=== PATIENT | female | born 1975 | race Caucasian/White ===

== ENCOUNTER → 2016-08-18 | Outpatient (CLI) | payer BC ==
--- NOTE | 2016-08-18 15:36 | REP ---
Clinical: Myomatous uterus. Comparison: 11/26/2014. Technique: Transabdominal pelvic ultrasound with color Doppler evaluation of the bilateral ovaries. Findings: An enlarged, heterogeneous, myomatous uterus measures 13.4 x 9.6 x 13.3 cm and includes at least four large fibroids measuring up to 5.1 x 5.1 x 4.0 cm along the right fundal aspect of the uterus. 4.5 x 3.8 x 4.2 cm anterior subserosal fibroid is appreciated along with 4.9 x 4.9 x 5.9 cm posterior subserosal fibroid, and 4.7 x 4.4 x 4.6 cm fundal fibroid. The endometrial complex is not evaluated due to poor definition by distortion from surrounding fibroids however no endocervical fluid is appreciated. Right ovary measures 2.5 x 2.2 x 3.0 cm; RI equal 0.46 and appears normal. Left ovary measures 3.1 x 2.2 x 2.4 cm; RI equals 0.43 and appears normal. No pelvic fluid or adnexal mass lesions. Impression: 1. Enlarged, heterogeneous myomatous uterus as detailed above. 2. Normal bilateral ovaries with appropriate vascularity and no torsion. 3. No pelvic fluid or adnexal mass lesion. Signed by Kavon Tinsley MD 08/18/2016 03:27 P
== END ==
LOC: M RAD 14:50
PROVIDERS: ATTEND Nurse Practitioner Family
DX: D25.9 Leiomyoma of uterus, unspecified (principal); N92.1 Excessive and frequent menstruation with irregular cycle

== ENCOUNTER → 2016-11-20 | Outpatient (REF) | payer BC | LOC: M LAB REF 15:07 | PROVIDERS: ATTEND Obstetrics & Gynecology | DX: N93.9 Abnormal uterine and vaginal bleeding, unspecified (principal) ==

== ENCOUNTER 2017-06-18 11:20 | Emergency (ER) | payer BC ==
[2017-06-18 11:49] LABS: KETONE, URINE AUTO RFX TRACE mg/dL (NEGATIVE); LEUKOCYTE ESTERASE UR AUTO RFX NEGATIVE (NEGATIVE); MUCUS, URINE RFX SMALL (NEGATIVE); NITRITE, URINE AUTO RFX NEGATIVE (NEGATIVE); RBC, URINE AUTO RFX 2 /HPF (0-3); SPECIFIC GRAVITY UR AUTO RFX 1.023 (1.002-1.035); SQUAM EPITHELIAL CELL UR AURFX 1 /HPF (0-6); WBC, URINE AUTO RFX 1 /HPF (0-3)
[2017-06-18] MEDS ORDERED: MORPHINE 2 MG/ML 1ML SYRINGE (J2270) IV (13:45)
[2017-06-18 14:03] LABS: BASO % 0.2 % (0.0-1.0); EOS # 0.1 10^3/uL (0.0-0.50); EOS % 0.8 % (0.0-3.0); HEMATOCRIT 33.8 % (36.0-47.0); HEMOGLOBIN 11.3 g/dl (12.0-16.0); IMMATURE GRANULOCYTE % 0.5 % (0-3.0); LYMPH # 2.4 10^3/uL (1.5-4.5); LYMPH % 16.6 % (24.0-44.0); MEAN CORPUSCULAR HEMOGLOBIN 31.9 pg (27.0-33.0); MEAN CORPUSCULAR HGB CONC 33.4 g/dl (32.0-36.5); MEAN CORPUSCULAR VOLUME 95.5 fl (80.0-96.0); MONO % 6.9 % (0.0-5.0); NEUTROPHILS # 10.8 10^3/uL (1.8-7.7); PLATELET COUNT, AUTOMATED 347 10^3/uL (150-450); RED BLOOD COUNT 3.54 10^6/uL (4.00-5.40); RED CELL DISTRIBUTION WIDTH 11.6 % (11.5-14.5); WHITE BLOOD COUNT 14.4 10^3/uL (4.0-10.0)
[2017-06-18 14:40] LABS: ANION GAP 5 MEQ/L (8-16); BLOOD UREA NITROGEN 19 MG/DL (7-18); CALCIUM LEVEL 8.7 MG/DL (8.5-10.1); CARBON DIOXIDE LEVEL 29 MEQ/L (21-32); CHLORIDE LEVEL 104 MEQ/L (98-107); CREATININE FOR GFR 0.77 MG/DL (0.55-1.30); GLOMERULAR FILTRATION RATE > 60.0 (>58); GLUCOSE, FASTING 84 MG/DL (70-100); POTASSIUM SERUM 4.2 MEQ/L (3.5-5.1); SODIUM LEVEL 138 MEQ/L (136-145)
[2017-06-18 14:43] LABS: LACTIC ACID SEPSIS PROTOCOL 0.8 MMOL/L (0.4-2.0)
[2017-06-18] MEDS ORDERED: ISOVUE-370 76% 100ML VIAL (Q9967) As Ordered (15:12)
== END 2017-06-18 17:16 | disposition home or self-care (01) ==
LOC: M ED 11:20
DX: G89.18 Other acute postprocedural pain (principal); F17.200 Nicotine dependence, unspecified, uncomplicated
CPT/HCPCS: Q9967

== ENCOUNTER → 2018-01-21 | Outpatient (REF) | payer BC ==
[2018-01-21 18:59] LABS: THYROID PEROXIDASE ANTIBODY > 1300.0 U/ML (<60.0)
== END ==
LOC: M LAB REF 17:17
DX: Z84.89 Family history of other specified conditions (principal)
CPT/HCPCS: 86800

== ENCOUNTER → 2018-02-26 | Outpatient (REF) | payer BC | LOC: M LAB REF 12:10 | DX: E04.2 Nontoxic multinodular goiter (principal) | CPT/HCPCS: 88173 ==

== ENCOUNTER → 2018-04-10 | Outpatient (REF) | payer BC | LOC: M LABDRAW1 09:29 | PROVIDERS: ATTEND Internal Medicine Endocrinology, Diabetes & Metabolism | DX: E06.3 Autoimmune thyroiditis (principal) ==

== ENCOUNTER → 2018-04-22 | Outpatient (CLI) | payer BC ==
--- NOTE | 2018-04-22 09:30 | REPMRS ---
Patient History The patient states she had a clinical breast exam in 03/2018. Family history of ovarian cancer at age 50 or over and breast cancer at age 50 or over in maternal grandmother, prostate cancer at age 50 or over in paternal grandfather. 3D TOMOSYNTHESIS WAS PERFORMED. Digital Woman Screen Mammo: April 22, 2018 - Exam #: [id number] Bilateral CC and MLO view(s) were taken. Technologist: Ricarda Claudio Technologist Prior study comparison: January 15, 2017, digital woman screen mammo performed at [facility]. January 12, 2016, digital woman screen mammo performed at [facility]. FINDINGS: The breast tissue is heterogeneously dense. This may lower the sensitivity of mammography. There has been no change in the appearance of the mammogram from the prior studies. There is a moderate amount of residual fibroglandular tissue which is fairly symmetric. There is no interval development of dominant mass, areas of architectural distortion, or clustered microcalcification typical of malignancy. Assessment: BI-RADS/ACR category 1 mammogram. Negative Mammogram. Recommendation Routine screening mammogram in 1 year (for women over age 40). This mammogram was interpreted with the aid of an FDA-approved computer-aided dectection system. Electronically Signed By: José Lopez MD 04/22/18 2051
== END ==
LOC: M WHC 07:50
PROVIDERS: ATTEND Nurse Practitioner Family
DX: Z12.31 Encounter for screening mammogram for malignant neoplasm of breast (principal); Z80.0 Family history of malignant neoplasm of digestive organs; Z80.41 Family history of malignant neoplasm of ovary; Z80.3 Family history of malignant neoplasm of breast

== ENCOUNTER → 2018-07-05 | Outpatient (REF) | payer BC | LOC: M LABDRAW1 09:36 | PROVIDERS: ATTEND Internal Medicine Endocrinology, Diabetes & Metabolism | DX: E06.3 Autoimmune thyroiditis (principal) ==

== ENCOUNTER → 2018-10-02 | Outpatient (REF) | payer BC ==
[2018-10-02 16:02] LABS: FREE T4 1.17 NG/DL (0.76-1.46); THYROID STIMULATING HORMONE 1.59 uIU/ML (0.358-3.740)
== END ==
LOC: M LABDRAW1 11:35
PROVIDERS: ATTEND Internal Medicine Endocrinology, Diabetes & Metabolism
DX: E06.3 Autoimmune thyroiditis (principal)

== ENCOUNTER → 2019-04-23 | Outpatient (CLI) | payer BC ==
--- NOTE | 2019-04-23 09:15 | REP ---
BILATERAL SCREENING DIGITAL MAMMOGRAM WITH 3D TOMOSYNTHESIS: There are no palpable abnormalities or other breast complaints. The the patient states she had a clinical breast examination March,. The Tyrer Cuzick Score is: 13.1%. Comparison is 11/26/2014. The breasts are heterogeneously dense, which could obscure small masses. There is no dominant mass, micro calcific cluster or architectural distortion that would indicate malignancy. There are no additional findings on 3D tomosynthesiss. There is no change from the prior study. Impression: BIRADS/ACR category 1 mammogram. Negative. Recommendation: Routine annual screening mammography. Because of the increased breast density, annual adjunctive breast MRI in addition to screening mammography is recommended. These can be performed at alternating six month intervals. This mammogram was interpreted with the aid of a FDA approved computer-aided detection system. A. Negative mammogram reports should not delay biopsy if a dominant or clinically suspicious mass is present. B. Not all breast cancers are identified by mammography or tomosynthesis. C. Adenosis and dense breasts may obscure an underlying neoplasm. Patient letter M1 dense breasts. Electronically Signed by José Sanford MD 04/23/2019 09:06 A
== END ==
LOC: M WHC 08:03
PROVIDERS: ATTEND Nurse Practitioner Family
DX: Z12.31 Encounter for screening mammogram for malignant neoplasm of breast (principal)

== ENCOUNTER → 2019-09-15 | Outpatient (CLI) | payer BC | LOC: M WUC 08:27 | PROVIDERS: ATTEND Internal Medicine Endocrinology, Diabetes & Metabolism | DX: E04.2 Nontoxic multinodular goiter (principal); E06.3 Autoimmune thyroiditis ==

== ENCOUNTER → 2020-04-26 | Outpatient (CLI) | payer BC ==
--- NOTE | 2020-04-26 09:24 | REPMRS ---
Patient History The patient states she had a clinical breast exam in 04/2020 Family history of ovarian cancer at age 50 or over and breast cancer at age 50 or over in maternal grandmother, prostate cancer at age 50 or over in paternal grandfather. Digital Woman Screen Mammo: April 26, 2020 - Exam #: [id number] Bilateral CC and MLO view(s) were taken. Technologist: Becky Gandhi, Technologist Prior study comparison: April 23, 2019, bilateral digital woman screen mammo performed at [facility]. April 22, 2018, bilateral digital woman screen mammo performed at [facility]. January 15, 2017, digital woman screen mammo performed at [facility]. FINDINGS: The breast tissue is heterogeneously dense. This may lower the sensitivity of mammography. The Volpara volumetric breast density category is: C. There is a moderate amount of heterogeneously dense fibroglandular tissue which is fairly symmetric. There is no interval development of dominant mass, architectural distortion, or grouped microcalcification typical of malignancy. There has been no change in the appearance of the mammogram from the prior studies. 3-D tomosynthesis shows no additional findings. Assessment: BI-RADS/ACR category 1 mammogram. Negative Mammogram. Recommendation Routine screening mammogram of both breasts in 1 year (for women over age 40). This patient's [facility] Lifetime Breast Cancer RIsk is estimated at 12.9 %. This mammogram was interpreted with the aid of an FDA-approved computer-aided dectection system. Electronically Signed By: Dom Bazan MD 04/26/20 0923
== END ==
LOC: M WHC 08:30
PROVIDERS: ATTEND Nurse Practitioner Family
DX: Z12.31 Encounter for screening mammogram for malignant neoplasm of breast (principal); Z80.41 Family history of malignant neoplasm of ovary; Z80.42 Family history of malignant neoplasm of prostate

== ENCOUNTER → 2020-11-29 | Outpatient (CLI) | payer BC | LOC: M WUC 08:20 | PROVIDERS: ATTEND Internal Medicine Endocrinology, Diabetes & Metabolism | DX: E04.2 Nontoxic multinodular goiter (principal) ==

== ENCOUNTER → 2021-05-11 | Outpatient (CLI) | payer BC | LOC: M WHC 09:45 | PROVIDERS: ATTEND Specialist | DX: Z12.31 Encounter for screening mammogram for malignant neoplasm of breast (principal) ==

== ENCOUNTER → 2021-08-23 | Outpatient (CLI) | payer BC | LOC: M WHC 07:00 | PROVIDERS: ATTEND Specialist | DX: N63.20 Unspecified lump in the left breast, unspecified quadrant (principal) ==

== ENCOUNTER → 2023-08-07 | Outpatient (CLI) | payer BC | LOC: M PLAIMG 08:02 | PROVIDERS: ATTEND Physician Assistant | DX: M70.61 Trochanteric bursitis, right hip (principal); M25.551 Pain in right hip ==

== ENCOUNTER → 2024-01-24 | Outpatient (REF) | payer BC ==
[2024-01-28 22:07] LABS: CYCLIC CITRULLINATED PEPTIDE < 16 UNITS (<20)
[2024-01-29 07:12] LABS: ANA PATTERN Nuclear, Homogeneous (NEGATIVE); ANA SCREEN, IFA POSITIVE (NEGATIVE)
[2024-01-29 18:28] LABS: LYME TOTAL ANTIBODY CIA <= 0.90 Index (<=0.90)
== END ==
LOC: M LAB REF 16:46
PROVIDERS: ATTEND Internal Medicine
DX: M79.641 Pain in right hand (principal); M25.50 Pain in unspecified joint

== ENCOUNTER → 2024-04-01 | Outpatient (REF) | payer BC ==
[2024-04-01 15:14] LABS: COMPLEMENT C3 103.2 MG/DL (90.0-170.0)
[2024-04-01 15:16] LABS: COMPLEMENT C4 24.8 MG/DL (12-36)
[2024-04-01 15:17] LABS: RHEUMATOID FACTOR QUANT 5.9 IU/ML (<14)
[2024-04-02 17:57] LABS: RNP ANTIBODY <1.0 NEG AI (<1.0 NEG); SM ANTIBODY <1.0 NEG AI (<1.0 NEG); SSA SJOGRENS A <1.0 NEG AI (<1.0 NEG); SSB SJOGRENS B <1.0 NEG AI (<1.0 NEG)
== END ==
LOC: M LAB REF 12:19
PROVIDERS: ATTEND Internal Medicine
DX: M25.50 Pain in unspecified joint (principal); E04.2 Nontoxic multinodular goiter; E06.3 Autoimmune thyroiditis